=== PATIENT | male | born 1950 | race Caucasian/White ===

== ENCOUNTER 2024-04-03 14:56 | Outpatient (CLI) | payer OTHER ==
[~2024-04-03] VITALS: Ht 195.6 cm; Wt 120.2 kg
[2024-04-03] MEDS: albuterol 2.5 MG/3 ML nebule NEB ONE (15:15)
[2024-04-03 15:16] VITALS: PULSE 54; RESP 16; O2SAT 96
[2024-04-03 15:29] VITALS: PULSE 62; RESP 16
== END 2024-04-03 23:59 | disposition home or self-care (01) ==
LOC: RT 14:56
PROVIDERS: ATTEND Chiropractor
DX: J61 Pneumoconiosis due to asbestos and other mineral fibers (principal)
CPT/HCPCS: 94060; 94760